=== PATIENT | female | born 1970 | race Caucasian/White ===

== ENCOUNTER 2016-09-06 22:41 | Emergency (ER) | payer BC, OTHER ==
[2016-09-06 22:51] VITALS: BP 117/75; PULSE 104; TEMP 98.3; BMI 32.5
--- NOTE | 2016-09-06 23:51 | EDPRACDOC ---
- General Information Chief Complaint: Flu-Like Symptoms Stated Complaint: flu like symptoms Time Seen by Provider: 09/06/16 23:45 Mode Of Arrival: Car Home Medications: Home Medications Fluticasone Propionate [Flonase Nasal [place]] 2 spray MIGUEL DAILY #1 each 09/06/16 Hydrocodone Bit/Homatropine [Hycodan Syrup] 5 ml PO Q6 PRN #120 syrup 09/06/16 Allergies/Adverse Reactions: Allergies Allergy/AdvReac Type Severity Reaction Status Date / Time aspirin Allergy Hives* Verified 09/06/16 22:47 - History of Present Illness Onset: 3 days HPI: PT COMPLAINS OF COUGH PROD OF YELLOW PHLEGM, SINUS CONGESTION, FEVER, CHILLS, BODY ACHES, SORE THROAT X 3 DAYS, PCP PRESCRIBED ZITHROMAX, PT STATES IT IS NOT HELPING. Current Symptoms: Reports: Cough, Fever, Headache, Nasal Symptoms, Sore Throat, Myalgia Shortness of Breath: None Cough: Reports: Productive, Yellow Rhinorrhea: Reports: Green Ear Symptoms: Reports: None Fever Severity/Quality: Reports: subjective Oral Intake: Normal Urinary Output: Normal Relevant History of: None Associated Signs & Symptoms:: Reports: Cough, Fever, Headache, Nasal Symptoms, Sore Throat, Myalgia - Treatment Prior to ED Arrival Reported Medications/Treatment [employer] Treated With Medication [employer] YES Ibuprofen/Acetaminophen (Dose/ Tylenol 1500 mg po @ 1930 Time) ED Past Medical History - History Reviewed Yes Nurses notes reviewed and agree except as marked - Patient Medical History Respiratory History: Reports: Pneumonia (JUL 2013) GI/ History: Reports: Gastroesophageal Reflux Psychological History: Reports: Anxiety Systemic History: Denies: Cancer Surgical History: Denies: Hysterectomy - Social Medical History Smoking Status: Never smoker ETOH: None Substance Abuse: None EDM Review of Systems - Review of Systems Constitutional: Fever Eyes: negative: Blurred Vision, Double Vision Ears: negative: Drainage Throat: Pain Nose: Congestion, Discharge Respiratory: Cough. negative: Shortness of Breath, Wheezing Cardiovascular: negative: Chest Pain, Palpitations Gastrointestinal: negative: Diarrhea, Nausea, Pain, Vomiting Genitourinary: negative: Dysuria, Frequency Neurological: Headache. negative: Dizziness, Numbness, Weakness Musculoskeletal: Back Integumentary: No Symptoms Reported - Physical Exam Constitutional: Alert (Awake), No apparent distress Oriented to: Time, Person, Place Last recorded Vital Signs: Last Vital Signs Temp 98.3 F 09/06/16 22:47 Pulse 104 09/06/16 22:47 Resp 20 09/06/16 22:47 BP 117/75 09/06/16 22:47 Pulse Ox 93 09/06/16 22:47 Oxygen Pulse Oxygen Saturation 93 O2 Device Oxygen Flow Rate Fraction of Inspired Oxygen ( FIO2) - HEENT Head: Normal ( normocephalic) Eye Exam: Normal (PERRL, EOMI, Sclera white) Oropharynx: Red. negative: Tonsillar Hypertrophy Tympanic Membrane: Dull ENT EAC: Normal TMJ: Normal Nose: No Symptoms Reported (septum midline) Neck: Normal (FROM, trachea at midline) HEENT Comment: MAXILLARY SINUSES TTP - Respiratory/Cardiovascular Respiratory: Normal - CTA (BBS clear to auscultation without adventitious sounds ) Cardiovascular: Normal (RRR without murmur, gallop or rub) - Integumentary Skin: Normal, Warm, Dry Lymphatics: Normal (no adenopathy) - Neurologic Memory Impaired: Normal Motor Function: Normal (Normal tone, Pulses 2+ No cyanosis or edema, FROM) Cranial Nerve: Normal (CN II-X11 intact sensation, strength 5/5) Cerebellar: Normal Mood Description: Normal Perception: Normal - Differential Diagnosis Bronchitis, Otitis Media, Pneumonia, Sinusitis Decision Time to Discharge: 23:52 - Departure Disposition: Home Condition: Stable Final Diagnosis: Acute sinusitis Instructions: Sinusitis (ED) Education/Counseling Given To: Patient Education/Counseling Given Regarding: Diagnosis, Treatment, Prognosis, Follow Up Referrals: Ganesh Sheth MD [Primary Care Provider] - One Week Prescriptions: Fluticasone Propionate [Flonase Nasal [place]] 2 spray MIGUEL DAILY #1 each Hydrocodone Bit/Homatropine [Hycodan Syrup] 5 ml PO Q6 PRN #120 syrup PRN Reason: Cough Forms: Excuse Note Additional Instructions: REST, DRINK PLENTY OF FLUIDS, FINISH ZITHROMAX, USE TYLENOL EVERY 4 HOUR AND MOTRIN EVERY 6 HOURS NEEDED FOR PAIN OR FEVER, RETURN TO THE ED FOR ANY WORSENING SYMPTOMS OR CONCERNS.
[2016-09-06] MEDS ORDERED: IBUPROFEN 800 MG TAB PO ONE (23:54)
== END 2016-09-07 00:08 | disposition home or self-care (01) ==
LOC: ED 22:41
DX: J01.90 Acute sinusitis, unspecified (principal)
CPT/HCPCS: 99281; J3490